=== PATIENT | male | born 2000 | race Caucasian/White ===

== ENCOUNTER 2018-03-28 14:56 | Emergency (ER) | payer OTHER, BC | END 2018-03-28 17:21 | disposition home or self-care (01) | LOC: NEPK 14:56 | DX: G44.319 Acute post-traumatic headache, not intractable (principal); S80.11XA Contusion of right lower leg, initial encounter; M25.511 Pain in right shoulder; V43.52XA Car driver injured in collision with other type car in traffic accident, initial encounter | CPT/HCPCS: 70450; 73590; 99284 ==